=== PATIENT | female | born 1995 | race African-American/Black ===

== ENCOUNTER 2023-09-17 17:38 | Inpatient (IN) | payer OTHER ==
[2023-09-17 18:56] VITALS: BMI 21.2
[2023-09-17] MEDS ORDERED: BISMUTH SUBSALICYLATE 524 MG/30 ML PO PRN (20:47)
[2023-09-17] MEDS ORDERED: IBUPROFEN 600 MG TABLET (FP) PO PRN (20:47)
[2023-09-17] MEDS ORDERED: IBUPROFEN 400 MG TABLET (FP) PO PRN (20:47)
[2023-09-17] MEDS ORDERED: NALOXONE HCL (KLOXXADO) 8 MG SPRAY NS PRN (20:47)
[2023-09-17] MEDS ORDERED: DICYCLOMINE HCL 10 MG CAPSULE PO PRN (20:47)
[2023-09-17] MEDS ORDERED: NALOXONE HCL 0.4 MG/ML VIAL IM PRN (20:47)
[2023-09-17] MEDS ORDERED: BENZOCAINE/MENTHOL (CHLORASEPTIC ) LOZENGE MM PRN (20:47)
[2023-09-17] MEDS ORDERED: LOPERAMIDE HCL 2 MG CAPSULE PO PRN (20:47)
[2023-09-17] MEDS ORDERED: MAG HYDROX/AL HYDROX/SIMETH 30 ML UNIT-DOSE CUP PO PRN (20:47)
[2023-09-17] MEDS ORDERED: guaiFENesin 600 MG TABLET.ER (FP) PO PRN (20:47)
[2023-09-17] MEDS ORDERED: POLYETHYLENE GLYCOL (HEALTHYLAX) 3350 17 GM PACKET PO PRN (20:47)
[2023-09-17] MEDS ORDERED: ACETAMINOPHEN 325 MG TABLET (FP) PO PRN (20:47)
[2023-09-17] MEDS ORDERED: MAGNESIUM HYDROX 2400MG/30ML ORAL SUSPENSION 30 ML CUP PO PRN (20:47)
[2023-09-17] MEDS ORDERED: BENZONATATE 200 MG CAPSULE PO PRN (20:47)
[2023-09-17] MEDS ORDERED: cloNIDine HCL 0.1 MG TABLET PO PRN (20:55)
[2023-09-17] MEDS ORDERED: TRIMETHOBENZAMIDE HCL 200MG/2ML INJ IM ONE ×2 (21:27→21:30)
[2023-09-17] MEDS ORDERED: MELATONIN 5 MG TABLETS PO ONE (21:30)
[2023-09-17] MEDS ORDERED: methaDONE HCL 10 MG TABLET (FOR DETOX USE ONLY) PO ONE (21:30)
[2023-09-17] MEDS ORDERED: methaDONE HCL 10 MG TABLET (FOR DETOX USE ONLY) ONE (21:34)
[2023-09-17] MEDS: MELATONIN 5 MG TABLETS PO SCH (23:12)
[2023-09-17] MEDS: THIAMINE HCL 100 MG TABLET (FP) PO SCH (23:13)
[2023-09-18] MEDS: ONDANSETRON *ODT* 4 MG TABLET SL PRN (04:57)
[2023-09-18 10:51] LABS: HEMATOCRIT 36.4 % (32.4-45.2); HEMOGLOBIN 12.3 GM/dL (10.7-15.3); MCH 27.2 pg (25.7-33.7); MCHC 33.9 g/dl (32.0-36.0); MEAN CELL VOLUME 80.2 fl (80-96); MEAN PLT VOLUME 8.7 fl (7.5-11.1); PLATELET COUNT 325 10^3/uL (134-434); RBC 4.54 M/mm3 (3.60-5.2); RDW 14.5 % (11.6-15.6); WHITE BLOOD COUNT 10.9 K/mm3 (4.0-10.0)
[2023-09-18] MEDS: PRENATAL VITAMINS W/ FOLIC ACID TABLET (FP) PO SCH (10:55)
[2023-09-18] MEDS: TRIMETHOBENZAMIDE HCL 200MG/2ML INJ IM PRN (11:57)
[2023-09-18 11:59] LABS: CHLORIDE 103 mmol/L (98-107); SODIUM 139 mmol/L (136-145)
[2023-09-18 12:03] LABS: BLOOD UREA NITROGEN 6.7 mg/dL (7-18); GLUCOSE,RANDOM 88 mg/dL (74-106)
[2023-09-18 12:06] LABS: ANION GAP 8 mmol/L (4-13); CALCIUM 9.7 mg/dL (8.5-10.1); CO2 28 mmol/L (21-32); CREATININE 0.9 mg/dL (0.55-1.3); SGOT/AST 17 U/L (15-37)
[2023-09-18 12:08] LABS: BILIRUBIN,TOTAL 0.4 mg/dL (0.2-1); TOT PROT 7.9 g/dl (6.4-8.2)
[2023-09-18 12:09] LABS: ALK PHOS 74 U/L (45-117)
[2023-09-18 12:24] LABS: SGPT/ALT 16 U/L (13-61)
[2023-09-18] MEDS: METHOCARBAMOL 500 MG TABLET PO PRN (18:20)
[2023-09-18] MEDS ORDERED: TRIMETHOBENZAMIDE HCL 200MG/2ML INJ IM ONE (20:00)
[2023-09-19] MEDS: THIAMINE HCL 100 MG TABLET (FP) PO SCH ×2 (00:12→22:05)
[2023-09-19] MEDS: MELATONIN 5 MG TABLETS PO SCH (00:12)
[2023-09-19] MEDS: METHOCARBAMOL 500 MG TABLET PO PRN ×4 (00:12→22:06)
[2023-09-19] MEDS: NITROFURANTOIN MONOHYD/M-CRYST 100 MG CAPSULE PO SCH ×3 (00:12→22:07)
[2023-09-19] MEDS ORDERED: methaDONE HCL 10 MG TABLET (FOR DETOX USE ONLY) PO ONE (10:00)
[2023-09-19] MEDS: PRENATAL VITAMINS W/ FOLIC ACID TABLET (FP) PO SCH (10:18)
[2023-09-19 12:02] LABS: EPI CELLS >36 /uL (0-25.1); HYALINE CASTS 5 /uL (0-3.1); PH,URINE 5.5 (5.0-8.0); URINE APPEARANCE CLOUDY; URINE BACTERIA 169 /uL (0-1359); URINE BILIRUBIN NEGATIVE (NEGATIVE); URINE COLOR YELLOW; URINE GLUCOSE (UA) NEGATIVE (NEGATIVE); URINE KETONE NEGATIVE (NEGATIVE); URINE LEUK ESTERASE TRACE (NEGATIVE); URINE NITRITE NEGATIVE (NEGATIVE); URINE PROTEIN TRACE (NEGATIVE); URINE UROBILINOGEN 0.2 mg/dL (0.2-1.0); URINE WBC 83 /uL (0-25.8)
[2023-09-19 12:56] LABS: URINE RBC 184.1 /uL (0-23.9); YEAST NEGATIVE (NEGATIVE)
[2023-09-19] MEDS: TRIMETHOBENZAMIDE HCL 200MG/2ML INJ IM PRN (13:17)
[2023-09-19] MEDS: ONDANSETRON *ODT* 4 MG TABLET SL PRN (17:10)
[2023-09-19] MEDS: QUEtiapine FUMARATE 100 MG TABLET (FP) PO SCH (22:07)
[2023-09-20] MEDS: METHOCARBAMOL 500 MG TABLET PO PRN ×3 (06:12→18:35)
[2023-09-20] MEDS: hydrOXYzine PAMOATE 25 MG CAPSULE (FP) PO PRN (09:55)
[2023-09-20] MEDS: PRENATAL VITAMINS W/ FOLIC ACID TABLET (FP) PO SCH (09:55)
[2023-09-20] MEDS: NITROFURANTOIN MONOHYD/M-CRYST 100 MG CAPSULE PO SCH ×2 (09:55→22:16)
[2023-09-20] MEDS: THIAMINE HCL 100 MG TABLET (FP) PO SCH (22:16)
[2023-09-20] MEDS: QUEtiapine FUMARATE 100 MG TABLET (FP) PO SCH (22:16)
[2023-09-21] MEDS: METHOCARBAMOL 500 MG TABLET PO PRN ×4 (01:56→22:20)
[2023-09-21] MEDS: hydrOXYzine PAMOATE 25 MG CAPSULE (FP) PO PRN (01:56)
[2023-09-21] MEDS: hydrOXYzine PAMOATE 50 MG CAPSULE (FP) PO PRN ×2 (08:53→22:19)
[2023-09-21] MEDS ORDERED: methaDONE HCL 10 MG TABLET (FOR DETOX USE ONLY) PO ONE (10:00)
[2023-09-21] MEDS: PRENATAL VITAMINS W/ FOLIC ACID TABLET (FP) PO SCH (10:09)
[2023-09-21] MEDS: NITROFURANTOIN MONOHYD/M-CRYST 100 MG CAPSULE PO SCH ×2 (10:11→22:14)
[2023-09-21] MEDS ORDERED: diazePAM 5 MG TABLET PO ONE (14:00)
[2023-09-21] MEDS: QUEtiapine FUMARATE 100 MG TABLET (FP) PO SCH (22:14)
[2023-09-21] MEDS: THIAMINE HCL 100 MG TABLET (FP) PO SCH (22:14)
[2023-09-22] MEDS: METHOCARBAMOL 500 MG TABLET PO PRN ×3 (04:01→16:47)
[2023-09-22] MEDS: hydrOXYzine PAMOATE 50 MG CAPSULE (FP) PO PRN ×3 (04:01→16:47)
[2023-09-22] MEDS: NITROFURANTOIN MONOHYD/M-CRYST 100 MG CAPSULE PO SCH (10:08)
[2023-09-22] MEDS: PRENATAL VITAMINS W/ FOLIC ACID TABLET (FP) PO SCH (10:08)
[2023-09-22 17:56] VITALS: BP 116/73; PULSE 71; RESP 16; TEMP 98.2
== END 2023-09-22 17:00 | disposition other institution (70) | DRG 773 ==
LOC: YASAS 17:38 → Y6N 21:34
PROVIDERS: ADMIT Allergy & Immunology; ATTEND Surgery
PROC: HZ2ZZZZ Detoxification Services for Substance Abuse Treatment (ICD-10-PCS; principal; 2023-09-17)
DX: F11.23 Opioid dependence with withdrawal (principal); F31.9 Bipolar disorder, unspecified; F90.9 Attention-deficit hyperactivity disorder, unspecified type; D57.3 Sickle-cell trait; N39.0 Urinary tract infection, site not specified; R01.1 Cardiac murmur, unspecified; Z87.891 Personal history of nicotine dependence; Z62.810 Personal history of physical and sexual abuse in childhood; Z88.8 Allergy status to other drugs, medicaments and biological substances
CPT/HCPCS: 36415; 80053; 80307; 81003; 81025; 85027; 86780; 87635; 93005; 93010; Q0162

== ENCOUNTER 2023-09-22 17:19 | Inpatient (IN) | payer OTHER ==
[2023-09-22] MEDS ORDERED: COLLOIDAL OATMEAL 1 BAR EACH TP PRN (18:32)
[2023-09-22] MEDS ORDERED: guaiFENesin 600 MG TABLET.ER (FP) PO PRN (18:32)
[2023-09-22] MEDS ORDERED: MAG HYDROX/AL HYDROX/SIMETH 30 ML UNIT-DOSE CUP PO PRN (18:32)
[2023-09-22] MEDS ORDERED: BENZONATATE 200 MG CAPSULE PO PRN (18:32)
[2023-09-22] MEDS ORDERED: ACETAMINOPHEN 325 MG TABLET (FP) PO PRN (18:32)
[2023-09-22] MEDS ORDERED: NALOXONE HCL 0.4 MG/ML VIAL IVPUSH PRN (18:32)
[2023-09-22] MEDS ORDERED: POLYETHYLENE GLYCOL (HEALTHYLAX) 3350 17 GM PACKET PO PRN (18:32)
[2023-09-22] MEDS ORDERED: LOPERAMIDE HCL 2 MG CAPSULE PO PRN (18:32)
[2023-09-22] MEDS ORDERED: NALOXONE HCL (KLOXXADO) 8 MG SPRAY NS PRN (18:32)
[2023-09-22] MEDS ORDERED: IBUPROFEN 600 MG TABLET (FP) PO PRN (18:32)
[2023-09-22] MEDS ORDERED: P-EPHED 60MG/TRIPROLIDI 2.5MG TABLET PO PRN (18:32)
[2023-09-22] MEDS ORDERED: IBUPROFEN 400 MG TABLET (FP) PO PRN (18:32)
[2023-09-22] MEDS ORDERED: NICOTINE POLACRILEX 2 MG GUM BUC PRN (18:32)
[2023-09-22] MEDS ORDERED: hydrOXYzine PAMOATE 25 MG CAPSULE (FP) PO PRN (18:32)
[2023-09-22] MEDS ORDERED: MAGNESIUM HYDROX 2400MG/30ML ORAL SUSPENSION 30 ML CUP PO PRN (18:32)
[2023-09-22] MEDS ORDERED: BENZOCAINE/MENTHOL (CHLORASEPTIC ) LOZENGE MM PRN (18:32)
[2023-09-22] MEDS: THIAMINE HCL 100 MG TABLET (FP) PO SCH (21:33)
[2023-09-22] MEDS: QUEtiapine FUMARATE 100 MG TABLET (FP) PO SCH (21:33)
[2023-09-22] MEDS: MELATONIN 5 MG TABLETS PO SCH (21:34)
[2023-09-22] MEDS: NITROFURANTOIN MONOHYD/M-CRYST 100 MG CAPSULE PO SCH (22:05)
[2023-09-22] MEDS: METHOCARBAMOL 500 MG TABLET PO PRN (22:07)
[2023-09-23 07:27] VITALS: RESP 16; TEMP 98.3
[2023-09-23] MEDS: NITROFURANTOIN MONOHYD/M-CRYST 100 MG CAPSULE PO SCH ×2 (10:03→21:18)
[2023-09-23] MEDS: METHOCARBAMOL 500 MG TABLET PO PRN (10:03)
[2023-09-23] MEDS: PRENATAL VITAMINS W/ FOLIC ACID TABLET (FP) PO SCH (10:03)
[2023-09-23] MEDS: QUEtiapine FUMARATE 100 MG TABLET (FP) PO SCH (21:18)
[2023-09-23] MEDS: THIAMINE HCL 100 MG TABLET (FP) PO SCH (21:18)
[2023-09-23] MEDS: MELATONIN 5 MG TABLETS PO SCH (21:19)
[2023-09-24 07:10] VITALS: BP 102/62; PULSE 86
[2023-09-24] MEDS: PRENATAL VITAMINS W/ FOLIC ACID TABLET (FP) PO SCH (09:50)
[2023-09-24] MEDS: METHOCARBAMOL 500 MG TABLET PO PRN (09:51)
== END 2023-09-24 12:45 | disposition left against medical advice (07) | DRG 770 ==
LOC: YASAS 17:19 → Y5N 17:22
PROVIDERS: ADMIT Allergy & Immunology; ATTEND Psychiatry & Neurology Pain Medicine
PROC: HZ42ZZZ Group Counseling for Substance Abuse Treatment, Cognitive-Behavioral (ICD-10-PCS; principal; 2023-09-22)
DX: F11.20 Opioid dependence, uncomplicated (principal); N39.0 Urinary tract infection, site not specified; Z87.891 Personal history of nicotine dependence

== ENCOUNTER 2025-03-11 11:29 | Inpatient (IN) | payer OTHER ==
[2025-03-11 12:02] VITALS: BMI 25.7
[2025-03-11] MEDS ORDERED: BENZOCAINE/MENTHOL (CHLORASEPTIC ) LOZENGE MM PRN (12:53)
[2025-03-11] MEDS ORDERED: guaiFENesin 600 MG TABLET.ER (FP) PO PRN (12:53)
[2025-03-11] MEDS ORDERED: MAGNESIUM HYDROX 2400MG/30ML ORAL SUSPENSION 30 ML CUP PO PRN (12:53)
[2025-03-11] MEDS ORDERED: IBUPROFEN 600 MG TABLET (FP) PO PRN (12:53)
[2025-03-11] MEDS ORDERED: NICOTINE POLACRILEX 2 MG GUM BUC PRN (12:53)
[2025-03-11] MEDS ORDERED: NICOTINE POLACRILEX 2 MG LOZENGE BC PRN (12:53)
[2025-03-11] MEDS ORDERED: IBUPROFEN 400 MG TABLET (FP) PO PRN (12:53)
[2025-03-11] MEDS ORDERED: NALOXONE (NARCAN) HCL 4 MG/0.1 ML SPRAY NS PRN (12:53)
[2025-03-11] MEDS ORDERED: ACETAMINOPHEN 325 MG TABLET (FP) PO PRN (12:53)
[2025-03-11] MEDS ORDERED: LOPERAMIDE HCL 2 MG CAPSULE PO PRN (12:53)
[2025-03-11] MEDS ORDERED: POLYETHYLENE GLYCOL (HEALTHYLAX) 3350 17 GM PACKET PO PRN (12:53)
[2025-03-11] MEDS ORDERED: BENZONATATE 200 MG CAPSULE PO PRN (12:53)
[2025-03-11] MEDS ORDERED: BISMUTH SUBSALICYLATE 524 MG/30 ML PO PRN (12:53)
[2025-03-11] MEDS: METHOCARBAMOL 500 MG TABLET PO PRN (14:26)
[2025-03-11] MEDS: hydrOXYzine PAMOATE 25 MG CAPSULE (FP) PO PRN (15:36)
[2025-03-11] MEDS: BUPRENORPHINE/NALOXONE 4 MG/1 MG FILM PACKET SL SCH (17:17)
[2025-03-11] MEDS: ONDANSETRON *ODT* 4 MG TABLET SL PRN (20:21)
[2025-03-11] MEDS: THIAMINE 100 MG TABLET PO SCH (22:13)
[2025-03-11] MEDS: MELATONIN 5 MG TABLETS PO SCH (22:13)
[2025-03-11] MEDS: MAG HYDROX/AL HYDROX/SIMETH 30 ML UNIT-DOSE CUP PO PRN (22:17)
[2025-03-12] MEDS: diazePAM 5 MG TABLET PO ONE (02:32)
[2025-03-12] MEDS: BUPRENORPHINE/NALOXONE 8 MG/2 MG FILM PACKET SL ONE (05:48)
[2025-03-12] MEDS: DICYCLOMINE HCL 10 MG CAPSULE PO PRN (09:11)
[2025-03-12] MEDS: PRENATAL VITAMINS W/ FOLIC ACID TABLET (FP) PO SCH (09:12)
[2025-03-12 11:16] LABS: HEMATOCRIT 32.9 % (34.1-44.9); HEMOGLOBIN 10.6 g/dL (11.2-15.7); MCHC 32.2 g/dl (32.2-35.5); MEAN CELL VOLUME 76.9 fl (79.4-94.8); PLATELET COUNT 371 x10^3/uL (182-369); RDW 15.5 % (12.1-16.5)
[2025-03-12 11:21] LABS: POTASSIUM 3.9 mmol/L (3.5-5.1)
[2025-03-12 11:34] LABS: BLOOD UREA NITROGEN 8.5 mg/dL (7-18)
[2025-03-12 11:36] LABS: ALBUMIN 3.8 g/dl (3.4-5.0); CALCIUM 9.7 mg/dL (8.5-10.1)
[2025-03-12 11:39] LABS: CREATININE 0.9 mg/dL (0.55-1.3)
[2025-03-12 11:41] LABS: BILIRUBIN,TOTAL 0.3 mg/dL (0.2-1); TOT PROT 7.2 g/dl (6.4-8.2)
[2025-03-12] MEDS: TRIMETHOBENZAMIDE HCL 200MG/2ML INJ IM ONE (11:58)
[2025-03-12] MEDS: BUPRENORPHINE/NALOXONE 8 MG/2 MG FILM PACKET SL SCH (22:04)
[2025-03-12] MEDS: QUEtiapine FUMARATE 200 MG TABLET PO SCH (22:04)
[2025-03-13] MEDS: diazePAM 5 MG TABLET PO PRN (02:57)
[2025-03-13 10:12] VITALS: BP 107/69; PULSE 92; RESP 14; TEMP 97.7
== END 2025-03-13 10:43 | disposition home or self-care (01) | DRG 773 ==
LOC: YASAS 11:29 → Y3N 13:59
PROVIDERS: ADMIT Allergy & Immunology; ATTEND Allergy & Immunology
PROC: HZ2ZZZZ Detoxification Services for Substance Abuse Treatment (ICD-10-PCS; principal; 2025-03-11)
DX: F11.23 Opioid dependence with withdrawal (principal); F17.290 Nicotine dependence, other tobacco product, uncomplicated; F31.9 Bipolar disorder, unspecified; F19.24 Other psychoactive substance dependence with psychoactive substance-induced mood disorder; G47.00 Insomnia, unspecified; R11.2 Nausea with vomiting, unspecified; Z88.8 Allergy status to other drugs, medicaments and biological substances
CPT/HCPCS: 36415; 80053; 80305; 80307; 81025; 85027; 86780; Q0162

== ENCOUNTER 2025-04-21 11:03 | Inpatient (IN) | payer OTHER ==
[2025-04-21 11:31] VITALS: BMI 25.9
[2025-04-21] MEDS ORDERED: NALOXONE (NARCAN) HCL 4 MG/0.1 ML SPRAY NS PRN (11:43)
[2025-04-21] MEDS ORDERED: ONDANSETRON *ODT* 4 MG TABLET SL PRN (11:43)
[2025-04-21] MEDS ORDERED: guaiFENesin 600 MG TABLET.ER (FP) PO PRN (11:43)
[2025-04-21] MEDS ORDERED: BISMUTH SUBSALICYLATE 524 MG/30 ML PO PRN (11:43)
[2025-04-21] MEDS ORDERED: BENZOCAINE/MENTHOL (CHLORASEPTIC ) LOZENGE MM PRN (11:43)
[2025-04-21] MEDS ORDERED: MAGNESIUM HYDROX 2400MG/30ML ORAL SUSPENSION 30 ML CUP PO PRN (11:43)
[2025-04-21] MEDS ORDERED: DICYCLOMINE HCL 10 MG CAPSULE PO PRN (11:43)
[2025-04-21] MEDS ORDERED: POLYETHYLENE GLYCOL (HEALTHYLAX) 3350 17 GM PACKET PO PRN (11:43)
[2025-04-21] MEDS ORDERED: BENZONATATE 200 MG CAPSULE PO PRN (11:43)
[2025-04-21] MEDS ORDERED: LOPERAMIDE HCL 2 MG CAPSULE PO PRN (11:43)
[2025-04-21] MEDS ORDERED: MAG HYDROX/AL HYDROX/SIMETH 30 ML UNIT-DOSE CUP PO PRN (11:43)
[2025-04-21] MEDS ORDERED: IBUPROFEN 400 MG TABLET (FP) PO PRN (11:43)
[2025-04-21] MEDS ORDERED: IBUPROFEN 600 MG TABLET (FP) PO PRN (11:43)
[2025-04-21] MEDS ORDERED: ACETAMINOPHEN 325 MG TABLET (FP) PO PRN (11:43)
[2025-04-21] MEDS ORDERED: hydrOXYzine PAMOATE 25 MG CAPSULE (FP) PO ONE (12:34)
[2025-04-21] MEDS: hydrOXYzine PAMOATE 25 MG CAPSULE (FP) PO PRN (12:35)
[2025-04-21] MEDS: METHOCARBAMOL 500 MG TABLET PO PRN (17:43)
[2025-04-21] MEDS: BUPRENORPHINE/NALOXONE 4 MG/1 MG FILM PACKET SL SCH (17:43)
[2025-04-21] MEDS: MELATONIN 5 MG TABLETS PO SCH (22:20)
[2025-04-21] MEDS: THIAMINE 100 MG TABLET PO SCH (22:20)
[2025-04-22] MEDS ORDERED: hydrOXYzine PAMOATE 50 MG CAPSULE (FP) PO PRN (08:49)
[2025-04-22 09:00] LABS: MCHC 32.1 g/dl (32.2-35.5); MEAN CELL VOLUME 77.5 fl (79.4-94.8); MEAN PLT VOLUME 10.2 fl (9.4-12.3); RDW 16.2 % (12.1-16.5)
[2025-04-22 09:08] LABS: CO2 28.0 mmol/L (21-32); GLUCOSE,RANDOM 98.0 mg/dL (74-106)
[2025-04-22 09:11] LABS: CREATININE 0.7 mg/dL (0.55-1.3); SGOT/AST 7.0 U/L (15-37); SGPT/ALT 15.0 U/L (13-61)
[2025-04-22] MEDS: PRENATAL VITAMINS W/ FOLIC ACID TABLET (FP) PO SCH (09:11)
[2025-04-22 09:13] LABS: TOT PROT 6.7 g/dl (6.4-8.2)
[2025-04-22 09:14] LABS: ALK PHOS 74.0 U/L (45-117)
[2025-04-22] MEDS: hydrOXYzine PAMOATE 50 MG CAPSULE (FP) PO PRN (10:11)
[2025-04-23] MEDS: BUPRENORPHINE/NALOXONE 8 MG/2 MG FILM PACKET SL ONE (06:03)
[2025-04-23 09:30] VITALS: BP 112/70; PULSE 89; RESP 18; TEMP 97.8
== END 2025-04-23 11:50 | disposition home or self-care (01) | DRG 773 ==
LOC: YASAS 11:03 → Y6N 12:34
PROVIDERS: ADMIT Neuromusculoskeletal Medicine & OMM; ATTEND Allergy & Immunology
PROC: HZ2ZZZZ Detoxification Services for Substance Abuse Treatment (ICD-10-PCS; principal; 2025-04-21)
DX: F11.23 Opioid dependence with withdrawal (principal); F17.210 Nicotine dependence, cigarettes, uncomplicated; D57.3 Sickle-cell trait; F25.9 Schizoaffective disorder, unspecified; F90.9 Attention-deficit hyperactivity disorder, unspecified type; R01.1 Cardiac murmur, unspecified
CPT/HCPCS: 36415; 80053; 80305; 80307; 81025; 85027; 86780